=== PATIENT | female | born 1955 | race Hispanic/Latino ===

== ENCOUNTER 2018-12-17 11:07 | Observation (INO) | payer OTHER ==
[~2018-12-17] VITALS: Ht 152.4 cm; Wt 71.8 kg
[2018-12-17] MEDS ORDERED: ASPIRIN 81 MG CHEW TAB PO NR (11:45)
--- NOTE | 2018-12-17 12:06 | Diagnostic Imaging Report ---
EXAMINATION: CXR 2 VIEW - HOPD INDICATION: Elevated BP. COMPARISON: None FINDINGS: TUBES and LINES: None. LUNGS: Lungs are well inflated. There is no evidence of pneumonia or pulmonary edema. PLEURA: No pleural effusion or pneumothorax. HEART AND MEDIASTINUM: The cardiomediastinal silhouette is unremarkable. BONES AND SOFT TISSUES: No acute osseous abnormality. UPPER ABDOMEN: No free air under the diaphragm. IMPRESSION: No acute radiographic abnormality. Signed by: Dr. Alma Zepeda MD on 12/17/2018 12:02 PM
[2018-12-17] MEDS ORDERED: FAMOTIDINE 20 MG TAB PO SCH (12:15)
[2018-12-17] MEDS ORDERED: ASPIRIN 81 MG CHEW TAB PO ONE (12:15)
[2018-12-17] MEDS ORDERED: ONDANSETRON HCL INJ 2MG/ML 2ML 2 MG/ML VIAL IV PRN (12:15)
[2018-12-17] MEDS ORDERED: SODIUM CHLORIDE FLUSH 10 ML SYR INJ PRN (12:15)
[2018-12-17] MEDS ORDERED: FAMOTIDINE 20 MG TAB ONE (12:33)
[2018-12-17] MEDS ORDERED: ASPIRIN 325 MG TAB ONE (12:33)
--- OUTSIDE RECORDS SUMMARY | 2018-12-17 12:37 | XMS REPORT ---
[facility] Address Unknown Phone Unavailable Care Team Providers Care Timber Girdler Name Role Phone EDDIE QIU Unavailable Unavailable Problems This patient has no known problems. Allergies, Adverse Reactions, Alerts This patient has no known allergies or adverse reactions. Medications This patient has no known medications. Results Test Description Test Time Test Comments Text Results Atomic Results Result Comments CXR 2 VIEW - HOPD 2018-12-17 11:59:00 [place] [address] Patient Name: LUPE GONZALEZ MR #: [id number] : 1955 Age/Sex: 63/F Req #: [id number] Adm Physician: Ordered by: EDDIE QIU MD Report #: [id number] Location: [facility] Room/Bed: Procedure: [id number] HOPD/CXR 2 VIEW - HOPD Exam Date: Exam Time: REPORT STATUS: Signed EXAMINATION: CXR 2 VIEW - HOPD INDICATION: Elevated BP. COMPARISON: None FINDINGS: TUBES and LINES: None. LUNGS: Lungs are well inflated. There is no evidence of pneumonia or pulmonary edema. PLEURA: No pleural effusion or pneumothorax. HEART AND MEDIASTINUM: The cardiomediastinal silhouette is unremarkable. BONES AND SOFT TISSUES: No acute osseous abnormality. UPPER ABDOMEN: No free air under the diaphragm. IMPRESSION: No acute radiographic abnormality. Signed by: Dr. Nazanin Harrison MD on 12/17/2018 12:02 PM Dictated By: NAZANIN HARRISON MD 1202 Transcribed By: GIGI on 12/17/18 1202 COPY TO: EDDIE QIU MD
--- NOTE | 2018-12-17 12:38 | NUR ---
[facility] CALLED FOR TRANSPORT
--- NOTE | 2018-12-17 13:38 | NUR ---
REPORT TO EMS
--- NOTE | 2018-12-17 13:59 | NUR ---
Patient admitted to unit from [facility]. Patient arrived via [facility]. Patient is AAOx3. Lung coppola clear to auscultation. Bowel sounds present x4. No edema noted. No s/s of distress noted. No c/o chest pain at this time. Patient informed this nurse that she was at work and felt some chest pressure like she could not catch her breath. Blood pressure was checked and noted to be a little elevated. Her coworkers called EMS. Patient has no shortness of breath at this time. No numbness or tingling
[2018-12-17 14:27] VITALS: BP 156/78
--- NOTE | 2018-12-17 14:27 | NUR ---
Informed Dr. Vega that patient had arrived and was in room 104.
[2018-12-17 14:28] VITALS: BP 156/78
[2018-12-17 14:30] VITALS: BP 156/78
[2018-12-17 14:37] VITALS: BP 156/78
[2018-12-17 16:54] LABS: CREATINE KINASE MB 1.3 ng/mL (0-5.0)
[2018-12-17 17:24] VITALS: BP 158/81
[2018-12-17] MEDS ORDERED: NITROGLYCERIN 2% OINT 1 GM PKT TOP SCH (18:00)
[2018-12-17 20:00] VITALS: BP 137/70
[2018-12-17] MEDS: CARVEDILOL 3.125 MG TAB PO SCH (21:15)
[2018-12-18] VITALS: BP 121/62
[2018-12-18 04:00] VITALS: BP 141/65
[2018-12-18 05:56] LABS: THYROID STIMULATING HORMONE 7.445 uIU/mL (0.350-4.940)
[2018-12-18 06:03] LABS: CHOL/HDL RATIO 3.5 (3.0-3.6)
--- NOTE | 2018-12-18 07:08 | NUR ---
Rcvd patient in report this am. Patient is asleep in bed at this time. No s/s of distress noted. No c/o chest pain
[2018-12-18 07:42] VITALS: BP 152/67
[2018-12-18] MEDS: CARVEDILOL 3.125 MG TAB PO SCH (08:23)
[2018-12-18 08:25] VITALS: BP 152/67
[2018-12-18] MEDS ORDERED: ASPIRIN 81 MG ENTERIC COATED PO SCH (09:00)
--- NOTE | 2018-12-18 10:12 | NUR ---
Patient went for stress test at this time.
[2018-12-18 11:52] VITALS: BP 147/72
--- NOTE | 2018-12-18 12:00 | NUR ---
Patient returned from stress test
[2018-12-18] MEDS ORDERED: COREG3.125 MG PO (12:55)
--- NOTE | 2018-12-18 13:11 | NUR ---
Removed IV at this time. Pressure dressing applied
--- NOTE | 2018-12-18 13:21 | NUR ---
Patient discharged from facility to home. Patient assisted out via staff. Reviewed all discharge instructions, follow up appts reviewed and follow up appts.
--- NOTE | 2018-12-18 14:44 | EXERCISE STRESS TEST ---
DATE OF STUDY: 12/18/2018 10:30:00 Stress Test - Treadmill ONLY INDICATION FOR STUDY: Chest pain. TECHNICAL DETAILS: After risks, benefits, pros and cons of exercise treadmill stress test explained to the patient, the patient agreed to proceed. The patient was brought to the stress lab where 12-lead EKG monitoring and blood pressure monitoring were obtained. She exercised on a Perez protocol for 9 minutes and 46 seconds terminating into stage IV of the protocol. Baseline heart rate went from 70 beats per minute to maximum of 156 beats per minute above our target heart rate. Blood pressure went from baseline of 147/72 to 188/96, which is an appropriate hemodynamic response. Underlying EKG reveals normal sinus rhythm and nonspecific ST-T wave changes and with exercise protocol at peak exercise, there was no ischemic EKG changes and no chest pain symptoms. The patient did have good exercise tolerance. CONCLUSIONS: 1. Negative exercise treadmill stress test. 2. Overall, this represents a low risk stress test. MD KAYLIE Macario/DOMINIC /[id number]
--- NOTE | 2018-12-18 15:20 | Discharge Summary ---
PRIMARY CARE DOCTOR: Dr. Gabriella Coppola. FINAL DIAGNOSIS: Likely noncardiac chest pain likely due to uncontrolled hypertension or stress related. MUSHROOM SPAWN MAKER: Dr. Au, Cardiology. PROCEDURES/STUDIES PERFORMED: 1. Echocardiogram, which was unremarkable. 2. Stress test, which was unremarkable. HISTORY: Per [facility] and [facility]. HOSPITAL COURSE: The patient was admitted. Her troponins were negative x3. Therefore, no acute myocardial infarction. Her LDL is 143, TSH is 7.445. I will relate these to her PCP. The patient underwent stress test, which was unremarkable. Therefore, right now the patient is stable to go home. I have discussed this case with Cardiology. As far as her uncontrolled blood pressure, she is doing better on Coreg 6.25 mg twice a day. I will go ahead and discharge her on this. The patient will follow up with her primary care doctor in a week. The patient was seen and examined today. CONDITION ON DISCHARGE: Stable. DISCHARGE MEDICATIONS: Please see medication reconciliation form. MD CATHERINE Perdomo/DOMINIC /[id number] cc: Gabriella Coppola
--- NOTE | 2018-12-18 17:15 | Consultation ---
DATE OF CONSULTATION: 12/18/2018 REASON FOR CONSULTATION: Chest pain. CHIEF COMPLAINT: Chest pain. HISTORY OF PRESENT ILLNESS: This is a 63-year-old female with history of hypertension. The patient presents to [facility] ER with complaints of chest pain, pressure in nature, retrosternal, off and on for about a month. Cardiology was consulted to evaluate the patient. The patient was seen in room. Reports chest pain off and on for about a month. Reports chest pain with and without activities, retrosternal, nonradiating, no associated symptoms. However, yesterday while on the computer reports had episode of chest pain lasting for about 1 hour, therefore came to the ER for further evaluation. Cardiac enzymes negative x2 thus far. Currently, the patient without chest pain. PAST MEDICAL HISTORY: Hypertension. PAST SURGICAL HISTORY: Appendectomy and . SOCIAL HISTORY: She is . She works for [employer]. She denies any alcohol use or tobacco use. FAMILY HISTORY: Mother alive at age 88, unknown medical issues. Father is alive, 89 years old, apparently with diabetes. ALLERGIES: NO KNOWN ALLERGIES. REVIEW OF SYSTEMS: GENERAL: Denies any fatigue, weakness, fevers, chills, or night sweats. SKIN: No rashes or sores. HEENT: No headaches, nausea, vomiting, any vision impairment, earaches, tinnitus, epistaxis, sore throat, swollen neck, bleeding gums, or hoarseness. CARDIAC: As above. RESPIRATORY: Dyspnea on exertion. Denies any hemoptysis. GI: Reports good appetite. No nausea, vomiting, diarrhea, constipation, melena, hematemesis. VASCULAR: Denies any lower extremity edema. MUSCULOSKELETAL: Generalized joint pains. NEUROLOGIC: Denies any tingling, tremors, weakness, paralysis, or any blackouts. HEMATOLOGIC: Denies any bruising or bleeding. ENDOCRINE: Denies any heat or cold intolerance, polyuria, polydipsia, or polyphagia. PHYSICAL EXAMINATION: VITAL SIGNS: Temperature 96.7, pulse 63, respiratory rate 17, blood pressure 152/67, and pulse ox 100% on room air. GENERAL: Appears stated age, reliable informant, in no acute distress. SKIN: No rashes or bruises. HEENT: Normocephalic. Pupils equal, round, and reactive. Extraocular movements intact. Trachea midline. NECK: No JVD. No carotid bruits. HEART: Regular rate and rhythm. PMI in both 4th and 5th intercostal space. LUNGS: Bilateral breath sounds. Clear to auscultation. ABDOMEN: Soft, nontender, and nondistended. No organomegaly. MUSCULOSKELETAL: Good muscle strength throughout. VASCULAR: +2 bilateral radial pulses. +2 DP and PT pulses bilaterally. NEUROLOGIC: Cranial nerves II through XII seem intact. LABORATORY DATA: Show troponin 0.004, next 0.01. TSH 7.4. Triglycerides 117, total cholesterol 233, LDL 143, and HDL 67. Chest x-ray, no acute abnormalities. EKG, sinus rhythm, heart rate 78. IMPRESSION: 1. Chest pain. 2. Hypertension. 3. Hyperlipidemia. PLAN: 1. The patient presents with chest pain with mixed features. Cardiac enzymes negative x2 thus far. Treatment options discussed with the patient I believe. The patient requested further workup. 2. We will go ahead and do a stress test to evaluate cardiac symptoms. 3. We will get an echo to evaluate heart function and structure. 4. Further recommendations after ischemic evaluation. Thank you very much for this consult. Dictated by Faizan Burger NP Moisés Au MD DC/DOMINIC /[id number]
== END 2018-12-18 13:20 | disposition home or self-care (01) ==
LOC: FSED 11:07 → ERHOLD 12:14 → MED/SURG 14:01
PROVIDERS: ADMIT Internal Medicine; ATTEND Internal Medicine
DX: R07.2 Precordial pain (principal); I10 Essential (primary) hypertension; E66.9 Obesity, unspecified; Z68.30 Body mass index [BMI] 30.0-30.9, adult; E78.5 Hyperlipidemia, unspecified
CPT/HCPCS: 36415 ×2; 71046; 80061; 82550; 82553; 84443; 84484 ×2; 93005; 93017; 93306; 99284; G0378 ×2; J2405